=== PATIENT | female | born 2000 | race Caucasian/White ===

== ENCOUNTER → 2023-11-20 08:21 | Outpatient (REF) | payer BC, SELFPAY | LOC: WDC 08:21 | PROVIDERS: ATTENDING PHYSICIAN Internal Medicine | DX: N64.4 Mastodynia (principal) | CPT/HCPCS: 76642 ==

== ENCOUNTER → 2024-04-28 08:03 | Outpatient (REF) | payer BC, SELFPAY | LOC: WDC 08:03 | PROVIDERS: ATTENDING PHYSICIAN Internal Medicine | DX: R92.8 Other abnormal and inconclusive findings on diagnostic imaging of breast (principal) | CPT/HCPCS: 76642 ==

== ENCOUNTER → 2024-05-20 09:56 | Outpatient (REF) | payer BC, SELFPAY ==
--- NOTE | 2024-05-20 14:30 | OID.BR.INTR ---
[facility] Breast Navigator - Initial
- -
Date of Contact: 05/20/24
Met with patient. Patient given written information on navigator services and support services available at [facility]. Will follow up as needed per protocol.
== END ==
LOC: WDC 09:56
PROVIDERS: ATTENDING PHYSICIAN Internal Medicine
DX: N63.10 Unspecified lump in the right breast, unspecified quadrant (principal)
CPT/HCPCS: 88305; 19083

== ENCOUNTER → 2024-11-03 14:18 | Outpatient (REF) | payer BC, SELFPAY | LOC: WDC 14:18 | PROVIDERS: ATTENDING PHYSICIAN Internal Medicine | DX: R92.8 Other abnormal and inconclusive findings on diagnostic imaging of breast (principal) | CPT/HCPCS: 76642 ==

== ENCOUNTER → 2024-12-15 11:38 | Outpatient (REF) | payer BC, SELFPAY | LOC: HWRAD 11:38 | PROVIDERS: ATTENDING PHYSICIAN Internal Medicine | DX: M25.552 Pain in left hip (principal) | CPT/HCPCS: 73502 ==

== ENCOUNTER → 2025-01-26 14:14 | Outpatient (REF) | payer BC, SELFPAY | LOC: HWRAD 14:14 | PROVIDERS: ATTENDING PHYSICIAN Internal Medicine | DX: R93.89 Abnormal findings on diagnostic imaging of other specified body structures (principal) | CPT/HCPCS: 74018 ==